=== PATIENT | male | born 1985 | race Caucasian/White ===

== ENCOUNTER 2017-08-04 11:58 | Emergency (ER) | payer OTHER ==
[~2017-08-04] VITALS: Ht 170.2 cm; Wt 60.0 kg
[2017-08-04 12:02] VITALS: Ht 170.2 cm; Wt 60.0 kg
[2017-08-04] MEDS ORDERED: CYCLOSPORINE 100 MG PO STA (12:17)
[2017-08-04] MEDS ORDERED: WARF7.5T PO ×2 (12:18)
[2017-08-04] MEDS ORDERED: CYCL25CA2 PO (12:18)
[2017-08-04] MEDS ORDERED: CYCL1CAP10 PO ×2 (12:18→14:23)
[2017-08-04] MEDS ORDERED: MAGN400T6 PO (12:18)
[2017-08-04] MEDS ORDERED: OPTIRAY 320 IV PRN (12:30)
--- NOTE | 2017-08-04 12:33 | EMERGENCY ROOM VISIT NOTE ---
History Report prepared by Naeem: Dev Iglesias Under the Supervision of: Dr. Woody Lizarraga M.D. First contact with patient: 12:08 Chief Complaint: ABDOMINAL PAIN Stated Complaint: ABD PAIN, STATES MISSED MEDS History of Present Illness The patient is a 32 year old male who presents to the Emergency Room with complaints of worsening abdominal pain for the past few days. He currently rates his discomfort as a 9/10 in severity. The patient states that the pain radiates into his back, and he vomited yellow foam. He also notes that he has not been having any bowel movements and not eating much. The patient states that he has a history of a liver transplant four years ago, and he usually takes 75mg of ciclosporin at night and 100mg in the morning. Also, he takes Coumadin daily for a clotting disorder. The patient states that he was recently placed in assisted three days ago, and he states that he has not been getting his medications properly since then. Also, he has been recently getting a lower dosage of Zoloft than normal. Source of History: patient Onset: few days ago Position: abdomen Symptom Intensity: 9/10 Timing: worsening Associated Symptoms: + vomiting Review of Systems See HPI for pertinent positives & negatives. A total of 10 systems reviewed and were otherwise negative. Past Medical & Surgical Medical Problems: (1) Clotting disorder Surgical Problems: (1) Liver transplanted Social History Smoking Status: Former Smoker Housing Status: other ([facility]) Occupation Status: other (prisoner) Current/Historical Medications Scheduled Cyclosporine (Neoral), 100 MG PO DAILY Cyclosporine (Cyclosporine), 75 MG PO HS Cyclosporine (Neoral), 75 MG PO HS Cyclosporine (Neoral), 100 MG PO DAILY Magnesium Oxide (Mag-Ox), 1,200 MG PO DAILY Warfarin Sodium (Coumadin), 7.5 MG PO [id number] Warfarin Sodium (Coumadin), 11.25 MG PO WK Allergies Coded Allergies: No Known Allergies (Unverified , 08/04/17) Physical Exam Vital Signs Date Time Temp Pulse Resp B/P (MAP) Pulse Ox O2 Delivery O2 Flow Rate FiO2 08/04/17 14:48 37.1 84 14 141/97 99 08/04/17 14:47 84 14 141/97 99 Room Air 08/04/17 13:33 91 14 144/99 99 Room Air 12/13/17 12:47 99 Room Air 08/04/17 12:43 80 08/04/17 12:02 37.1 89 20 130/83 100 Room Air Physical Exam GENERAL: Patient is a healthy-appearing well-nourished male HEAD: Normocephalic atraumatic EYES: Ocular movements intact pupils equal and react to light OROPHARYNX mucous membranes are moist no exudates present no erythema or edema present NECK: Supple no nuchal rigidity CHEST: Good equal expansion LUNGS: Clear and equal to auscultation CARDIAC: Normal S1 and S2 ABDOMEN: Tender in the right upper quadrant. Soft no guarding BACK: No CVA tenderness EXTREMITIES: No pain upon palpation normal muscle strength in all groups no clubbing cyanosis or edema NEURO: Patient is following commands and answering questions appropriately. Alert and oriented x3 Cranial Nerves 2-12 grossly intact Medical Decision & Procedures ER Provider Diagnostic Interpretation: Radiology results as stated below per my review and radiologist interpretation: CT OF THE ABDOMEN AND PELVIS WITH CONTRAST CLINICAL HISTORY: Right upper quadrant bowel pain. Status post liver transplant. COMPARISON STUDY: None. TECHNIQUE: Following IV administration of 116 mL of Optiray-320, axial images of the abdomen and pelvis were obtained from the lung bases to the proximal femurs. Images were reviewed in the axial, sagittal, and coronal planes. IV contrast was administered without complication. A dose lowering technique was utilized adhering to the principles of ALARA. CT DOSE: 274.86 mGy.cm FINDINGS: Lung bases are clear. The morphology of the transplanted liver is normal. Mild dilatation of the common bile duct, measuring 1 cm is likely postsurgical. The gallbladder is surgically absent. There is no peripancreatic infiltration. Size of the spleen is at the upper limits of normal. The main, left and right portal veins are patent. Superior mesenteric vein is patent. No hepatic lesions are identified on this portal venous phase study. There is no abdominal or pelvic lymphadenopathy. There is mild atherosclerotic plaque of the abdominal aorta which is normal in caliber. Caliber and wall thickness of small and large bowel are normal. The appendix is normal. There is no ascites. No suspicious osseous lesions are identified. There is no abscess. IMPRESSION: 1. No acute process within the abdomen or pelvis. 2. Unremarkable appearance of the transplanted liver. Patent main, left and right portal veins. Mild biliary ductal dilatation which is likely postsurgical/related to previous cholecystectomy. Borderline splenomegaly. No ascites. 3. No bowel obstruction. Normal appendix. Electronically signed by: Kenneth Richardson M.D. 08/04/2017 2:15 PM Dictated Date/Time: 08/04/2017 2:05 PM Laboratory Results 08/04/17 12:30 Red Blood Count 4.73, Mean Corpuscular Volume 91.8, Mean Corpuscular Hemoglobin 32.1, Mean Corpuscular Hemoglobin Concent 35.0, Mean Platelet Volume 11.6, Neutrophils (%) (Auto) 76.6, Lymphocytes (%) (Auto) 18.1, Monocytes (%) (Auto) 4.9, Eosinophils (%) (Auto) 0.1, Basophils (%) (Auto) 0.2, Neutrophils # (Auto) 6.25, Lymphocytes # (Auto) 1.48, Monocytes # (Auto) 0.40, Eosinophils # (Auto) 0.01, Basophils # (Auto) 0.02 08/04/17 12:30 Test 08/04/17 12:30 08/04/17 13:35 White Blood Count 8.17 K/uL (4.8-10.8) Red Blood Count 4.73 M/uL (4.7-6.1) Hemoglobin 15.2 g/dL (14.0-18.0) Hematocrit 43.4 % (42-52) Mean Corpuscular Volume 91.8 fL (80-100) Mean Corpuscular Hemoglobin 32.1 pg (25-34) Mean Corpuscular Hemoglobin Concent 35.0 g/dl (32-36) Platelet Count 152 K/uL (130-400) Mean Platelet Volume 11.6 fL (7.4-10.4) Neutrophils (%) (Auto) 76.6 % Lymphocytes (%) (Auto) 18.1 % Monocytes (%) (Auto) 4.9 % Eosinophils (%) (Auto) 0.1 % Basophils (%) (Auto) 0.2 % Neutrophils # (Auto) 6.25 K/uL (1.4-6.5) Lymphocytes # (Auto) 1.48 K/uL (1.2-3.4) Monocytes # (Auto) 0.40 K/uL (0.11-0.59) Eosinophils # (Auto) 0.01 K/uL (0-0.5) Basophils # (Auto) 0.02 K/uL (0-0.2) RDW Standard Deviation 46.3 fL (36.4-46.3) RDW Coefficient of Variation 13.8 % (11.5-14.5) Immature Granulocyte % (Auto) 0.1 % Immature Granulocyte # (Auto) 0.01 K/uL (0.00-0.02) Prothrombin Time 24.2 SECONDS (9.0-12.0) Prothromb Time International Ratio 2.3 (0.9-1.1) Anion Gap 8.0 mmol/L (3-11) Est Creatinine Clear Calc Drug Dose 61.2 ml/min Estimated GFR () 72.1 Estimated GFR (Non- 62.2 BUN/Creatinine Ratio 24.8 (10-20) Calcium Level 9.8 mg/dl (8.5-10.1) Total Bilirubin 0.6 mg/dl (0.2-1) Direct Bilirubin 0.2 mg/dl (0-0.2) Aspartate Amino Transf (AST/SGOT) 37 U/L (15-37) Alanine Aminotransferase (ALT/SGPT) 37 U/L (12-78) Alkaline Phosphatase 109 U/L (45-117) Total Protein 8.3 gm/dl (6.4-8.2) Albumin 4.8 gm/dl (3.4-5.0) Lipase 128 U/L (73-393) Labs reviewed by ED physician. Medications Administered Medications (Trade) Dose Ordered Sig/Kana Route Start Time Stop Time Status Last Admin Dose Admin Cyclosporine (Neoral Cap) 100 mg NOW STAT PO 08/04/17 12:17 08/04/17 12:19 DC 08/04/17 12:41 100 MG Ondansetron HCl (Zofran Inj) 4 mg STK-MED ONCE .ROUTE 08/04/17 12:38 08/04/17 12:39 DC 08/04/17 12:41 4 MG Hydromorphone HCl (Dilaudid Inj) 1 mg NOW STAT IV 08/04/17 13:33 08/04/17 13:34 DC 08/04/17 13:40 1 MG Ondansetron HCl (Zofran Inj) 4 mg NOW STAT IV 08/04/17 13:33 08/04/17 13:34 DC 08/04/17 13:39 4 MG ED Course 1208: Past medical records reviewed. The patient was evaluated in room B9. A complete history and physical examination was performed. 1217: Neoral Cap 100mg PO 1238: Zofran 4mg IV 1333: Zofran 4mg IV, Dilaudid 1mg IV 1423: Upon reexamination the patient is doing well. I discussed results and treatment plan with the patient. He verbalizes agreement and understanding. The patient is ready for discharge. Medical Decision Differential diagnosis: Etiologies such as appendicitis, diverticulitis, PUD, biliary pathology, UTI, pancreatitis, obstruction, mesenteric ischemia, aortic pathology, infections, inflammatory bowel disease, renal colic, as well as others were entertained. This is a 32-year-old male who presents emergency department complaining of not taking his antirejection medication and in addition also complaining of abdominal pain. I'll note the patient is normotensive and not tachycardic and afebrile here in the emergency department. In addition he has a normal CBC normal renal profile normal liver profile and normal lipase. CAT scan the abdomen pelvis shows no acute pathology. The patient was given his antirejection medication here in the emergency department and a cyclosporine level was obtained. At this point I do not see any acute process and I feel that the patient can be safely [facility] to his [facility]. His INR here is 2.5. Medication Reconcilliation Current Medication List: was personally reviewed by me Blood Pressure Screening Patient's blood pressure: Elevated blood pressure Blood pressure disposition: Referred to PCP Impression Primary Impression: Abdominal pain Scribe Attestation The scribe's documentation has been prepared under my direction and personally reviewed by me in its entirety. I confirm that the note above accurately reflects all work, treatment, procedures, and medical decision making performed by me. Departure Information Dispostion Other (Intermediate) Prescriptions Cyclosporine (Neoral) 100 Mg Cap 100 MG PO DAILY for 30 Days, #30 CAP Prov: Woody Lizarraga MD 08/04/17 Cyclosporine (Neoral) 25 Mg Cap 75 MG PO HS for 30 Days, #30 CAP Prov: Woody Lizarraga MD 08/04/17 Referrals No Doctor, Assigned (PCP) Forms Call Back Authorization, HOME CARE DOCUMENTATION FORM, IMPORTANT VISIT INFORMATION Patient Instructions Diet Clear Liquid Dc, ED Abdominal Pain Unkn Cause Male, My [facility] Additional Instructions Clear liquid diet next 48 hours Take meds as previously prescribed You were found to have an elevated blood pressure today (>120 sytolic or >90 diastolic). Per medicare guidelines, you need to follow up with this blood pressure screening with your Primary Care Physician (PCP). For a new PCP call [phone]. You have been examined and treated today on an emergency basis only. This is not a substitute for, or an effort to provide, complete comprehensive medical care. It is impossible to recognize and treat all injuries or illnesses in a single emergency department visit. It is therefore important that you follow up closely with your PCP. Call as soon as possible for an appointment. Thank you for your time and consideration. I look forward to speaking with you again soon. Please don't hesitate to call us if you have any questions. Problem Qualifiers Primary Impression: Abdominal pain Abdominal location: unspecified location Qualified Codes: R10.9 - Unspecified abdominal pain
[2017-08-04] MEDS ORDERED: ONDANSETRON INJ 2 MG/ML 2 ML VIAL ONE (12:38)
[2017-08-04 12:47] VITALS: O2SAT 99
[2017-08-04 13:10] LABS: BASO % 0.2 %; BASO ABS # 0.02 K/uL (0-0.2); COMPLETE YES; EOS % 0.1 %; HEMATOCRIT 43.4 % (42-52); IG% 0.1 %; LYMPH % 18.1 %; LYMPH ABS # 1.48 K/uL (1.2-3.4); MEAN CELL VOLUME 91.8 fL (80-100); MEAN CORPUSCULAR HEMOGLOBIN 32.1 pg (25-34); MEAN PLATELET VOLUME 11.6 fL (7.4-10.4); MONO % 4.9 %; NEUT % 76.6 %; PLATELET COUNT 152 K/uL (130-400); RED BLOOD COUNT 4.73 M/uL (4.7-6.1); WHITE BLOOD COUNT 8.17 K/uL (4.8-10.8)
[2017-08-04 13:17] LABS: INR 2.3 (0.9-1.1); PROTHROMBIN TIME (PATIENT) 24.2 SECONDS (9.0-12.0)
[2017-08-04 13:33] LABS: CREATININE 1.47 mg/dl (0.60-1.40)
[2017-08-04] MEDS ORDERED: HYDROmorphone INJ 1 MG/ML SYR IV STA (13:33)
[2017-08-04] MEDS ORDERED: ONDANSETRON INJ 2 MG/ML 2 ML VIAL IV STA (13:33)
[2017-08-04 13:34] LABS: BUN/CREATININE RATIO 24.8 (10-20); CALCIUM 9.8 mg/dl (8.5-10.1); POTASSIUM 4.6 mmol/L (3.5-5.1)
--- NOTE | 2017-08-04 14:16 | DIAGNOSTIC IMAGING REPORT ---
CT OF THE ABDOMEN AND PELVIS WITH CONTRAST CLINICAL HISTORY: Right upper quadrant bowel pain. Status post liver transplant. COMPARISON STUDY: None. TECHNIQUE: Following IV administration of 116 mL of Optiray-320, axial images of the abdomen and pelvis were obtained from the lung bases to the proximal femurs. Images were reviewed in the axial, sagittal, and coronal planes. IV contrast was administered without complication. A dose lowering technique was utilized adhering to the principles of ALARA. CT DOSE: 274.86 mGy.cm FINDINGS: Lung bases are clear. The morphology of the transplanted liver is normal. Mild dilatation of the common bile duct, measuring 1 cm is likely postsurgical. The gallbladder is surgically absent. There is no peripancreatic infiltration. Size of the spleen is at the upper limits of normal. The main, left and right portal veins are patent. Superior mesenteric vein is patent. No hepatic lesions are identified on this portal venous phase study. There is no abdominal or pelvic lymphadenopathy. There is mild atherosclerotic plaque of the abdominal aorta which is normal in caliber. Caliber and wall thickness of small and large bowel are normal. The appendix is normal. There is no ascites. No suspicious osseous lesions are identified. There is no abscess. IMPRESSION: 1. No acute process within the abdomen or pelvis. 2. Unremarkable appearance of the transplanted liver. Patent main, left and right portal veins. Mild biliary ductal dilatation which is likely postsurgical/related to previous cholecystectomy. Borderline splenomegaly. No ascites. 3. No bowel obstruction. Normal appendix. Electronically signed by: Kenneth Richardson M.D. 08/04/2017 2:15 PM Dictated Date/Time: 08/04/2017 2:05 PM
[2017-08-04] MEDS ORDERED: CYCL25CA5 PO (14:23)
[2017-08-04 14:48] VITALS: BP 141/97; PULSE 84; TEMP 37.1; O2SAT 99
== END 2017-08-04 14:50 | disposition home or self-care (01) ==
LOC: C.EDB 12:03
DX: R10.9 Unspecified abdominal pain (principal); I99.9 Unspecified disorder of circulatory system; Z94.4 Liver transplant status; Z87.891 Personal history of nicotine dependence; Z79.01 Long term (current) use of anticoagulants